=== PATIENT | female | born 1980 | race Two or more races ===

== ENCOUNTER 2019-07-16 06:17 | Day surgery (SDC) | payer OTHER ==
[~2019-07-16 06:17] MED LIST: ESKALITH300 MG PO; JARDIANCE25 MG PO; SYNTHROID88 MCG PO
[2019-07-16] MEDS ORDERED: PERCOCET 5-3251 EACH PO (13:48)
== END 2019-07-16 16:59 | disposition home or self-care (01) ==
LOC: CIR.AMB 06:17 → ADM 08:00 → CIR.AMB 08:00
DX: Z30.2 Encounter for sterilization (principal)